=== PATIENT | male | born 1960 | race Caucasian/White ===

== ENCOUNTER → 2017-05-02 | Outpatient (CLI) | payer BC ==
--- NOTE | 2017-05-02 10:38 | US ---
EXAMINATION TYPE: US abdomen complete DATE OF EXAM: 05/02/2017 COMPARISON: NONE CLINICAL HISTORY: R19.7 Diarrhea unspecified. EXAM MEASUREMENTS: Liver Length: 16.9 cm Gallbladder Wall: 0.2 cm CHD: 0.2 cm Spleen: 9.9 cm Right Kidney: 9.5 x 5.2 x 4.2 cm Left Kidney: 9.6 x 4.5 x 4.6 cm Pancreas: head not well visualized Liver: wnl Gallbladder: wnl Evidence for sonographic Reese's sign: neg CHD: wnl Spleen: wnl Right Kidney: cystic lesion seen in lower pole = 1.2 x 1.6 x 1. 0 cm Left Kidney: wnl Upper IVC: wnl Abd Aorta: no AAA seen The liver is homogenous. The intrahepatic portion of the IVC and visualized abdominal aorta are with in normal limits. There is no evidence of cholelithiasis. Common bile duct is unremarkable. The vi sualized portions of the pancreas are homogenous. Portions of pancreatic head are not well seen on i mages saved. The spleen is unremarkable. Kidneys are symmetric and free of hydronephrosis. No worri some renal lesions are seen. There is 1.2 cm simple appearing cyst is marked by technologist lower p ole level right kidney. IMPRESSION: No significant finding is seen to account for patient's symptoms of diarrhea.
== END | disposition home or self-care (01) ==
LOC: RADUSWWP 08:45
PROVIDERS: ATTEND Family Medicine
DX: R19.7 Diarrhea, unspecified (principal)
CPT/HCPCS: 76700

== ENCOUNTER → 2017-05-21 | Outpatient (CLI) | payer BC ==
--- NOTE | 2017-05-21 15:23 | NM ---
EXAMINATION TYPE: NM hepatobiliary w EF DATE OF EXAM: 05/21/2017 COMPARISON: Ultrasound abdomen 05/02/2017 HISTORY: Generalized abdomen pain and diarrhea TECHNIQUE: After the intravenous administration of 5.01 mCi Tc 99m Mebrofenin hepatobiliary scintigra phy is performed. Immediate images post injection. FINDINGS: There is satisfactory initial accumulation of tracer by the liver. The gallbladder is visualized wit hin 30 minutes. The small bowel activity is noted within 12 minutes. At one hour 8 ounces of oral e nsure plus is given to mimic CCK and gallbladder ejection fraction is calculated at 89 %. Therefore there is no scintigraphic evidence of cystic or common bile duct obstruction to suggest acute cholecy stitis. IMPRESSION: Gallbladder ejection fraction is 89% which may be slightly elevated, no cystic duct obstr uction
== END | disposition home or self-care (01) ==
LOC: RADNMMAIN 12:47
PROVIDERS: ATTEND Family Medicine
DX: R19.7 Diarrhea, unspecified (principal); R10.84 Generalized abdominal pain
CPT/HCPCS: 78226; A9537

== ENCOUNTER 2019-09-09 03:58 | Emergency (ER) | payer BC ==
[2019-09-09 06:33] LABS: Basophils % (A) 0 %; Eosinophils # (A) 0.1 k/uL (0-0.7); Eosinophils % (A) 0 %; HCT 48.4 % (39.0-53.0); HGB 16.2 gm/dL (13.0-17.5); Lymphocytes # (A) 0.3 k/uL (1.0-4.8); Lymphocytes % (A) 3 %; MCH 31.6 pg (25.0-35.0); MCHC 33.4 g/dL (31.0-37.0); MCV 94.6 fL (80.0-100.0); Mean Platelet Volume 8.8; Monocytes # (A) 0.5 k/uL (0-1.0); Monocytes % (A) 4 %; Neutrophils # (A) 11.3 k/uL (1.3-7.7); Neutrophils % (A) 92 %; Platelet Count 217 k/uL (150-450); RBC 5.12 m/uL (4.30-5.90); RDW 12.1 % (11.5-15.5); WBC 12.2 k/uL (3.8-10.6)
[2019-09-09 06:41] LABS: ALT 36 U/L (21-72); AST 36 U/L (17-59); African American GFR (CKD) >90 (>60 ml/min/1.73 sqM); Albumin 4.6 g/dL (3.5-5.0); Alkaline Phosphatase 85 U/L (38-126); Anion Gap 12 mmol/L; Blood Urea Nitrogen 29 mg/dL (9-20); Calcium 9.8 mg/dL (8.4-10.2); Carbon Dioxide 23 mmol/L (22-30); Chloride 107 mmol/L (98-107); Creatine Kinase 166 U/L (55-170); Glucose 121 mg/dL (74-99); Magnesium 1.8 mg/dL (1.6-2.3); Non-African American GFR(CKD) >90 (>60 ml/min/1.73 sqM); Potassium 4.2 mmol/L (3.5-5.1); Sodium 142 mmol/L (137-145); Total Bilirubin 0.9 mg/dL (0.2-1.3); Total Protein 7.5 g/dL (6.3-8.2)
--- NOTE | 2019-09-09 07:17 | XR ---
EXAM: XR Chest, 2 Views CLINICAL HISTORY: CHEST PAIN; FEVER TECHNIQUE: Frontal and lateral views of the chest. COMPARISON: No relevant prior studies available. FINDINGS: Lungs: Unremarkable. No consolidation. Pleural space: Unremarkable. No pneumothorax. Heart: Unremarkable. No cardiomegaly. Mediastinum: Unremarkable. Bones/joints: Unremarkable. IMPRESSION: No acute findings
== END 2019-09-09 08:37 | disposition home or self-care (01) ==
LOC: EC 03:58
DX: R10.9 Unspecified abdominal pain (principal); R00.0 Tachycardia, unspecified; E86.0 Dehydration; R11.2 Nausea with vomiting, unspecified; R19.7 Diarrhea, unspecified; R07.9 Chest pain, unspecified; Z53.20 Procedure and treatment not carried out because of patient's decision for unspecified reasons
CPT/HCPCS: 36415; 71046; 80053; 82550; 83690; 83735; 84484; 85025; 96361; 96374; 99284

== ENCOUNTER → 2019-09-24 | Outpatient (CLI) | payer BC ==
--- NOTE | 2019-10-15 20:33 | ENG ---
ELECTRONYSTAGMOGRAM REPORT ATTENDING PHYSICIAN: Dr. Santos. VNG INDICATIONS: 59-year-old male with dizziness, began 6 months prior to test, gradual onset and staying the same. These come in spells lasting 10-20 seconds, 1-2 per day and can be precipitated by rolling over in bed left or right, going from a lying to a seated position, looking up or head back position or turning the head right or left. The patient has some decreased hearing bilaterally with steady ringing in both ears. No pain, fullness or pressure reported in the ears. VNG FINDINGS: Saccades shows intact peak velocities, accuracies and latencies. Gaze with fixation shows no nystagmus in any of the directions of gaze including centrally with vision denied. Tracking shows no breakups. Optokinetic nystagmus shows no asymmetry at faster or slower speeds. Static position testing shows no nystagmus in any of the 6 positions tested with eyes opened or with vision denied. [place]-Hallpike maneuvers of provoked dizziness on the right and also on the left side without any significant nystagmus recorded. Caloric testing shows bilateral caloric weakness. VNG IMPRESSIONS: Main feature of this record is possible benign positional vertigo based on patient's subjective reporting of dizziness on either side. Otherwise, bilateral weakness is recorded on calorics. Another test such as the head thrust test or, if available, active and passive rotation testing is required to confirm presence of bilateral vestibular dysfunction. Other features of this VNG are unremarkable. There were no central nervous system abnormalities detected. MMODL / IJN: [id number] /
== END | disposition home or self-care (01) ==
LOC: NEUROMAIN 08:47
PROVIDERS: ATTEND Otolaryngology
DX: H81.8X3 Other disorders of vestibular function, bilateral (principal)
CPT/HCPCS: 92537; 92540

== ENCOUNTER 2021-12-11 09:27 | Emergency (ER) | payer BC ==
[2021-12-11 09:50] VITALS: BP 143/83; PULSE 92; RESP 16; TEMP 98.2
--- NOTE | 2021-12-11 10:04 | ED ---
Recheck HPI - General Chief Complaint: Recheck/Abnormal Lab/Rx Stated Complaint: Covid test Time Seen by Provider: 12/11/21 09:51 Source: patient, RN notes reviewed Mode of arrival: ambulatory Limitations: no limitations - History of Present Illness Initial Comments: This is a pleasant 61-year-old male who presents emergency Department. Camilo morales's tested positive for COVID-19 today. Patient has a symptomatic himself. Patient presents for COVID-19 test.No headache, no fever or chills, no changes in vision or hearing, no sore throat or difficulty with speech, no neck pain, no chest pain or shortness of breath, no abdominal pain, no nausea or vomiting, no changes in urination or bowel movements, no numbness or tingling, no extremity pain, no skin rashes or lesions. - Related Data Allergies Allergy/AdvReac Type Severity Reaction Status Date / Time No Known Allergies Allergy Verified 12/11/21 09:50 Review of Systems ROS Statement: Those systems with pertinent positive or pertinent negative responses have been documented in the HPI. ROS Other: All systems not noted in ROS Statement are negative. Past Medical History Past Medical History: No Reported History History of Any Multi-Drug Resistant Organisms: None Reported Past Surgical History: Hernia Repair Past Psychological History: No Psychological Hx Reported Smoking Status: Never smoker Past Alcohol Use History: None Reported Past Drug Use History: None Reported General Exam Limitations: no limitations General appearance: alert, in no apparent distress Head exam: Present: atraumatic, normocephalic, normal inspection Eye exam: Present: normal appearance, PERRL, EOMI. Absent: scleral icterus, conjunctival injection, periorbital swelling ENT exam: Present: normal exam, mucous membranes moist Neck exam: Present: normal inspection. Absent: tenderness, meningismus, lymp hadenopathy Respiratory exam: Present: normal lung sounds bilaterally. Absent: respiratory distress, wheezes, rales, rhonchi, stridor Cardiovascular Exam: Present: regular rate, normal rhythm, normal heart sounds. Absent: systolic murmur, diastolic murmur, rubs, gallop, clicks GI/Abdominal exam: Present: soft, normal bowel sounds. Absent: distended, tenderness, guarding, rebound, rigid Extremities exam: Present: normal inspection, full ROM, normal capillary refill. Absent: tenderness, pedal edema, joint swelling, calf tenderness Back exam: Present: normal inspection Neurological exam: Present: alert, oriented X3, CN II-XII intact Psychiatric exam: Present: normal affect, normal mood Skin exam: Present: warm, dry, intact, normal color. Absent: rash Course Vital Signs 12/11/21 09:46 Temperature 98.2 F Pulse Rate 92 Respiratory 16 Rate Blood Pressure 143/83 O2 Sat by Pulse 98 Oximetry Medical Decision Making - Medical Decision Making No headache, no fever or chills, no changes in vision or hearing, no sore throat or difficulty with speech, no neck pain, no chest pain or shortness of breath, no abdominal pain, no nausea or vomiting, no changes in urination or bowel movements, no numbness or tingling, no extremity pain, no skin rashes or lesions. COVID-19 test was positive. Message left for the patient. - Lab Data Lab Results 12/11/21 Range/Units 09:52 Coronavirus (PCR) Not Detected (Not Detectd) Disposition Clinical Impression: Encounter for screening for COVID-19 Disposition: HOME SELF-CARE Condition: Good Additional Instructions: SELF QUARANTINE DISCHARGE: If you're test is positive or you become positive, followed these instructions As you are at risk for symptoms due to coronavirus, please stay home and stay away from others as much as possible. Please maintain social distance of 6 feet if possible. You should not return to work until at least 3 days (72 hours) have passed since recovery of symptoms. This defined as resolution of fever without the use of fever reducing medicines and improvement in respiratory symptoms (e.g,, coug h, shortness of breath) Isolation can end at least 5 days after symptom onset and after fever ends for 24 hours (without the use of fever-reducing medication) and symptoms are improving, if these people can continue to properly wear a well-fitted mask around others for 5 more days after the 5-day isolation period. If you're still having symptoms at the end of 5 day period, isolate for an additional 5 days. More information about what to do if you are sick can be found on the CDC website at https://www.cdc.gov/coronavirus/2019-ncov/in-isw-mlt-sick/xzbvg-eqke-kkwy.html Expect the symptoms to last for 7-14 days from onset. Use acetaminophen (Tylenol) as needed for discomfort. You can take a maximum of 1 gram every 6 hours for discomfort, with your total dose in 24 hours not exceeding 4 grams. Be sure to maintain hydration. Drink continuous water and/or items high in vitamin C, such as orange juice and/or lemonade. Unless you have high blood pressure, you may consider Sudafed (which is [id number]) for nasal congestion. I would suggest that a short acting Sudafed rather than the 24 hour Sudafed. For a cough you may take Mucinex or Robitussin. Also consider the use of Vicks Vapor Rub or your chest when you sleep. Use a humidifier that is cleaned frequently, in the bedroom at night. For Nausea /Vomiting/Diarrhea associated with your Illness: o Small frequent sips of room temperature liquids. o Diet: [place] Foods - If you are still experiencing discomfort and/or nausea please slowly advancing your diet using the BRAT Diet = bananas, rice, apples/apple sauce, toast. o With diarrhea avoid any dairy for 48 hours after symptoms resolved. o Continue with activity as tolerated. If your symptoms do get worse and you believe that the upper respiratory infection has developed into something else, such as pneumonia or severe dehydration, please return to the emergency department or follow-up with your primary care. But expect to be symptomatic for the days as indicated above COVID-19 test pending at this time Is patient prescribed a controlled substance at d/c from ED?: No Referrals: Candido De León MD [Primary Care Provider] - 1-2 days Time of Disposition: 10:04
== END 2021-12-11 10:09 | disposition home or self-care (01) ==
LOC: EC 09:27
DX: Z20.822 Contact with and (suspected) exposure to COVID-19 (principal)
CPT/HCPCS: 87635; 99283